=== PATIENT | female | born 1955 | race Caucasian/White ===

== ENCOUNTER 2016-12-29 23:39 | Inpatient (IN) | payer OTHER ==
--- NOTE | ~2016-12-29 | EGD ---
EGD REPORT [facility] [address] [address] NAME: CHINA SOUSA : 55 STATUS : ADM IN PAT#: [id number] AGE: 61 ADM/REG DATE : 12/30/16 MR#: [id number] REPORT SERV DATE: 12/31/16 DICTATED BY: MARLO THOAMS DATE: 12/31/16 REPORT STATUS : Draft TRANSCRIBED BY: [employer] DATE: 12/31/16 [facility] Patient Name: China Sousa Date of : 1955 Attending MD: MARLO THOMAS, Procedure Date No Time: 12/31/2016 Procedure: ERCP Indications: Jaundice Medicines: General Anesthesia Complications: No immediate complications. Estimated blood loss: None Procedure: After obtaining informed consent, the scope was passed under direct vision. Throughout the procedure, the patient's blood pressure, pulse, and oxygen saturations were monitored continuously. The TJF [id number] was introduced through the mouth, and advanced to the duodenum and used to inject contrast into the bile duct. The ERCP was accomplished without difficulty. The patient tolerated the procedure well. The ERCP was technically difficult and complex. Findings: The major papilla was normal. The major papilla was enlarged. The ventral pancreatic duct was deeply cannulated with the short-nosed traction sphincterotome. This was done after failing to canulate the bile duct. Contrast was injected. I personally interpreted the pancreatic duct images. Ductal flow of contrast was adequate. The ventral pancreatic duct in the head of the pancreas, pancreatic duct in the genu of the pancreas and pancreatic duct in the body of the pancreas were dilated diffusely. One 5 Fr by 5 cm temporary stent with a full external pigtail was placed into the ventral pancreatic duct. The stent was in good position. The bile duct was deeply cannulated with the short-nosed traction sphincterotome. Contrast was injected. Opacification of the in the biliary system was seen. The lower third of the main bile duct contained a single severe stenosis 15 mm in length. The middle third of the main bile duct and upper third of the main bile duct were severely dilated. Cells for cytology were obtained from the lower third of the main bile duct by brushing. Biliary sphincterotomy was made with a traction (standard) sphincterotome using ERBE electrocautery. There was no post-sphincterotomy bleeding. One 10 Fr by 7 cm temporary stent was placed into the common bile duct. Bile flowed through the stent. The stent was in good position. Impression: - The major papilla appeared normal. - The major papilla appeared to be enlarged. - Dilatation of the ventral pancreatic duct in the head EGD REPORT [place] [id number] [facility] [place]. [address] NAME: CHINA SOUSA : 55 STATUS : ADM IN [facility]#: [id number] AGE: 61 ADM/REG DATE : 12/30/16 MR#: [id number] REPORT SERV DATE: 12/31/16 DICTATED BY: MARLO THOMAS DATE: 12/31/16 REPORT STATUS : Draft TRANSCRIBED BY: [employer] DATE: 12/31/16 of the pancreas, pancreatic duct in the body of the pancreas and pancreatic duct in the genu of the pancreas was found diffusely. - A severe biliary stricture was found. - The upper third of the main bile duct and middle third of the main bile duct were severely dilated. Recommendation: - Return to previous diet. - Continue present medications. - Await cytology results. - Will need PD stent removed in 7-10 days. - Refer to a surgeon. Procedure Code(s): --- Professional --- 84641, Endoscopic retrograde cholangiopancreatography (ERCP); with placement of endoscopic stent into biliary or pancreatic duct, including pre- and post-dilation and guide wire passage, when performed, including sphincterotomy, when performed, each stent 45218, Endoscopic retrograde cholangiopancreatography (ERCP); with placement of endoscopic stent into biliary or pancreatic duct, including pre- and post-dilation and guide wire passage, when performed, including sphincterotomy, when performed, each stent Diagnosis Code(s): --- Professional --- K83.9, Disease of biliary tract, unspecified K86.8, Other specified diseases of pancreas K83.1, Obstruction of bile duct Q44.0, Agenesis, aplasia and hypoplasia of gallbladder Q44.1, Other congenital malformations of gallbladder Q44.4, Choledochal cyst Q44.5, Other congenital malformations of bile ducts Q44.7, Other congenital malformations of liver R17, Unspecified jaundice CPT copyright 2013 [employer]. All rights reserved. The codes documented in this report are preliminary and upon senior national account manager review may be revised to meet current compliance requirements. MARLO THOMAS, 12/31/2016 11:26 AM Number of Addenda: 0 EGD REPORT [facility] [address] [place] [address]. [id number] NAME: CHINA SOUSA : 55 STATUS : ADM IN [facility]#: [id number] AGE: 61 ADM/REG DATE : 12/30/16 MR#: [id number] REPORT SERV DATE: 12/31/16 DICTATED BY: MARLO THOMAS DATE: 12/31/16 REPORT STATUS : Draft TRANSCRIBED BY: [employer] DATE: 12/31/16 Note Initiated On: 12/31/2016 9:00 AM Scope Withdrawal Time 0 hours 0 minutes 0 seconds [facility] [place] [address]
--- NOTE | ~2016-12-29 | DS ---
Discharge Summary [facility] [address] [place]. [address] NAME: KOFI DECKER : 55 STATUS : DIS IN PAT#: [id number] AGE: 61 ADM/REG DATE : 12/30/16 MR#: [id number] REPORT SERV DATE: 01/02/17 DICTATED BY: BJ HENRY DATE: 01/01/17 REPORT STATUS : Draft TRANSCRIBED BY: MODL DATE: 01/01/17 ADMISSION DATE: 12/30/2016 DISCHARGE DATE: 01/01/2017 DISCHARGE DIAGNOSES: 1. Pancreatic mass with elevated CA-19-9 consistent with most likely pancreatic cancer. 2. Obstructive jaundice. 3. Tobacco abuse. 4. Anxiety disorder. CONSULTANTS DURING THIS HOSPITALIZATION: 1. Winter Collins MD of Gastroenterology. 2. Davis Nolasco MD of Interventional Gastroenterology. 3. Chencho Clemente M.D. of General Surgery. INVASIVE PROCEDURES DONE DURING THIS HOSPITALIZATION: ERCP with EUS showing gastritis, normal esophagus, normal duodenum, a 30 mm x 24 mm cystic lesion in the pancreatic head. Stricture in the lower third of the main bile duct, dilation of the common bile duct, dilated echo sonographic appearance of the pancreatic head, dilated pancreatic duct with placement of a pancreatic stent and a common bile duct stent. BRIEF HISTORY OF PRESENT ILLNESS: The patient is a 61-year-old female presented with weakness and weight loss with elevated liver function studies. So she was admitted. For detailed history and physical exam, please see note dictated by Dr. Liban Perez on 12/30/2016. HOSPITAL COURSE: After being admitted to the hospital, this patient underwent a CT of the abdomen and pelvis which showed cystic mass of the pancreas with dilation of the biliary tree. At that time, GI was consulted. Dr. Collins saw the patient in consultation, recommended an EUS ERCP. Dr. Nolasco saw the patient in consultation and performed the above procedure. Report of which is noted as above. Pathology reports are still pending. CA-19- 9 was done which was almost 2600+. We asked General Surgery to see the patient in consultation as well and Surgery recommended that she could be discharged and followed up in the outpatient setting. A CT of the chest was done for staging and it showed the patient has a history of carcinoma of the pancreas within the anterior mediastinum. There is a 3.2 x 2.1 cm inhomogeneous enhancing mass. The differential diagnosis includes metastases, malignant thymoma or lung carcinoma that has extended into the anterior mediastinum. No additional lung lesions or adenopathy are present, and she has COPD. This patient was ambulatory. She was tolerating diet, and she wants to go home and follow up in the outpatient setting. DISCHARGE DISPOSITION: Home. DISCHARGE ACTIVITY: As tolerated. DISCHARGE DIET: As tolerated. Discharge Summary [address] [address] NAME: KOFI DECKER : 55 STATUS : DIS IN PAT#: [id number] AGE: 61 ADM/REG DATE : 12/30/16 MR#: [id number] REPORT SERV DATE: 01/02/17 DICTATED BY: BJ HENRY DATE: 01/01/17 REPORT STATUS : Draft TRANSCRIBED BY: JEFF DATE: 01/01/17 DISCHARGE MEDICATIONS: Pepto-Bismol as needed and Prilosec 20 mg daily p.r.n. for heartburn. DISCHARGE FOLLOWUP: With Dr. Davis Nolasco as it will be scheduled through his office with Dr. Chencho Clemente in one week. More than 30 minutes spent planning this patient's discharge, reconciling medications, writing prescriptions, discussing hospital care, and followup with the patient and documenting this discharge. LEV/JEFF Bj Henry M.D. / [id number] CC: Jordyn Hensley MD Gregory Olds, MD Richard Hunter Jennings III, M.D.
--- NOTE | ~2016-12-29 | CN ---
Consultation Report [facility] [address] [place]. [address] NAME: KOFI SOUSA : 55 STATUS : ADM IN PAT#: [id number] AGE: 61 ADM/REG DATE : 12/30/16 MR#: [id number] REPORT SERV DATE: 12/31/16 DICTATED BY: CANDELARIA COLLINS DATE: 12/31/16 REPORT STATUS : Draft TRANSCRIBED BY: MODFauzia DATE: 12/31/16 DATE OF CONSULTATION: 12/30/2016 GI Consultation Note REASON FOR CONSULTATION: Abdominal pain, weight loss, nausea, weakness, abnormal CT scan, possible pancreatic mass. HISTORY OF PRESENT ILLNESS: Ms. Sousa is a 61-year-old female who presented to [facility] with a chief complaint of abdominal pain for the past 4 months which has radiated to her back, some nausea and occasional emesis, weakness and weight loss of 10 to 15 pounds within the past 4 months. She had an upper respiratory tract infection in July of 2016 and since then, she reports that her symptoms have gotten worse. She also has anorexia and poor appetite, subjective fever, chills, and sweats. On admission to [facility], her white count is normal. H and H are normal, but she has been noted to have a significant elevation in her liver enzymes and lipase. Her lipase is 2533, bilirubin was 2.7, AST 59, ALT 63, and alkaline phosphatase 1061. Repeat liver enzymes this morning showed a bilirubin of 2.5. High transaminasemia with an AST of 275, ALT of 518, and alk phos of 944. CT scan showed a cystic mass located in the pancreatic head which is described as a large multisegmented cystic structure, measuring to be about 4.7 x 3.8 cm. There is subsequent mass-effect on the pancreatic duct and distal common bile duct with extra and intrahepatic biliary dilatation as well. CA 19-9 also noted to be elevated at 2688. PAST MEDICAL HISTORY: Reflux disease, depression. PAST SURGICAL HISTORY: Tubal ligation. SOCIAL HISTORY: The patient smokes half a pack per day. Denies any alcohol or drug use. FAMILY HISTORY: Melanoma, gastric cancer, coronary artery disease. MEDICATIONS: Reviewed. ALLERGIES: REVIEWED. PHYSICAL EXAMINATION: GENERAL: Patient is a thin female, in no acute distress. Awake, alert, and oriented. HEENT: Atraumatic and normocephalic. Some mild scleral icterus. Mucous membranes moist. CARDIAC: S1 and S2. CHEST: Clear. ABDOMEN: Soft. Minimal tenderness to palpation without any rebound or guarding. Bowel sounds normoactive. Consultation Report [facility] [address] [place]. [address] NAME: KOFI SOUSA : 55 STATUS : ADM IN PAT#: [id number] AGE: 61 ADM/REG DATE : 12/30/16 MR#: [id number] REPORT SERV DATE: 12/31/16 DICTATED BY: CANDELARIA COLLINS DATE: 12/31/16 REPORT STATUS : Draft TRANSCRIBED BY: MODL DATE: 12/31/16 LABORATORY DATA: Show WBC 8.4, hemoglobin 13, hematocrit 37, platelets 377. Sodium 135, potassium 4.2, chloride 104, bicarb 7, BUN 0.48, glucose 118, albumin is 3, bilirubin 2.5, AST 275, ALT 518, alkaline phosphatase 944, lipase 2533. CA 19-[address] scan as dictated above. IMPRESSION AND PLAN: Pancreatic head mass of unclear etiology with subsequent biliary dilatation by mass effect. I will request Dr. Nolasco' services regarding endoscopic ultrasound for further evaluation of these findings. I have discussed the procedure, indications, risks, benefits, and alternatives and I have discussed the likely diagnosis regarding this pancreatic mass especially given her symptoms and her elevated CA 19-9. Questions and concerns were addressed. EMILY/JEFF Candelaria Collins MD / [id number] CC: MD ZACH Jones II, NP
--- NOTE | ~2016-12-29 | HP ---
History And Physical [facility] [address] [place]. [address] NAME: KOFI SOUSA : 55 STATUS : ADM IN [facility]#: [id number] AGE: 61 ADM/REG DATE : 12/30/16 MR#: [id number] REPORT SERV DATE: 12/30/16 DICTATED BY: KELSIE MONIQUE DATE: 12/30/16 REPORT STATUS : Draft TRANSCRIBED BY: MODL DATE: 12/30/16 DATE OF ADMISSION: 12/30/2016 POINT OF ENTRY: [facility] Emergency Department. CHIEF COMPLAINT: Abdominal pain, nausea, weakness, and weight loss. HISTORY OF PRESENT ILLNESS: Ms. Sousa is a 61-year-old female with no significant previous medical history, who presents to the emergency department today with a 4-month history of intermittent episodes of epigastric abdominal pain with radiation to the back with associated nausea, anorexia as well as weight loss. The patient states that she had an upper respiratory tract infection beginning in July and was coughing so hard that she subsequently developed some severe epigastric abdominal pain. She states that it occasionally will radiate to the back. Since this episode in July, she has had intermittent episodes of epigastric abdominal pain with radiation to the back. It occurs most days than not. It is associated with nausea, anorexia, occasional episodes of vomiting. Over the last 4 months, she states she has lost about 10 pounds. She has also had some chills and subjective fevers but never checked her temperature. She denies any yellowing of her skin or eyes. The patient also reports severe weakness and fatigue secondary to the weight loss and poor oral intake. Initial evaluation in the emergency department notable for a lipase level of 2533. She has evidence of obstructive jaundice with a bilirubin of 2.7, ALT is 63, AST 59, alkaline phosphatase of 1061. CT of the abdomen and pelvis unfortunately showed a cystic pancreatic mass in the head of the pancreas of 4.7 x 3.8 cm that is causing obstruction of the distal common bile duct as well as pancreatic duct. There is also extensive intra and extrahepatic ductal dilatation. The patient was subsequently admitted to the Hospitalist Service for further evaluation and management. REVIEW OF SYSTEMS: Comprehensive review of systems otherwise negative, unless listed in history of present illness. PREVIOUS MEDICAL HISTORY: 1. Gastric reflux disease. 2. Depression. 3. Active tobacco abuse. SURGICAL HISTORY: Tubal ligation. HOME MEDICATIONS: Pending at time of dictation. ALLERGIES: CODEINE. SOCIAL HISTORY: She does smoke about a half pack per day. States she quit this morning. History And Physical [address] [place]. [address] NAME: KOFI SOUSA : 55 STATUS : ADM IN [facility]#: [id number] AGE: 61 ADM/REG DATE : 12/30/16 MR#: [id number] REPORT SERV DATE: 12/30/16 DICTATED BY: KELSIE MONIQUE DATE: 12/30/16 REPORT STATUS : Draft TRANSCRIBED BY: JEFF DATE: 12/30/16 Denies alcohol. Denies illicits. FAMILY MEDICAL HISTORY: Mother of melanoma. Father with stomach cancer and coronary disease. Siblings with history of stomach cancer and coronary disease. LABS AND IMAGIN. White count is 9.5, hemoglobin is 14.2, hematocrit is 40.3, and platelet count is 420. 2. Sodium is 130, potassium 4.4, chloride 94, carbon dioxide is 34, BUN is 9, creatinine 0.63, glucose is 139, calcium is 10.1, protein is 8.1, albumin is 3.8, bilirubin is 2.7, ALT is 63, AST 359, alkaline phosphatase is 1061, her lipase is 2533. 3. Chest x-ray per my review shows no acute cardiopulmonary abnormality. Does show some COPD type changes with hyperinflation and flattened diaphragms. 4. CT scan of the abdomen and pelvis shows multi-cystic mass in the head of the pancreas measuring 4.7 x 3.8 cm obstruction of both the distal common bile duct as well as pancreatic duct resulting in intra and extrahepatic ductal dilatation with associated mildly distended gallbladder also present. PHYSICAL EXAMINATION: VITAL SIGNS: Temperature is 98.1 degrees Fahrenheit, pulse is 60, respirations 20, saturating 97% on room air, blood pressure 141/63. GENERAL: The patient is awake, alert, in no acute distress. Resting comfortably. She is a very frail and cachectic appearing female. HEENT: Atraumatic and normocephalic. Moist mucous membranes. Pupils are equal, round, reactive to light and accommodation. Extraocular eye movements intact. No scleral icterus. NECK: No jugular venous distention. No carotid bruits. CARDIAC: Regular rate and rhythm. No murmurs or gallops. Normal S1, S2. LUNGS: Clear auscultation bilaterally. Decreased breath sounds in the bases and prolonged expiratory phase. Otherwise, no wheezes, rhonchi, or crackles. ABDOMEN: Soft. Does have some epigastric tenderness to palpation, but no rebound, guarding, rigidity. EXTREMITIES: Warm, perfused. No cyanosis, clubbing, or edema. Is frail and cachectic. SKIN: Warm and dry. PSYCH: Affect appropriate. NEURO: Alert and oriented x3. Cranial nerves 2 through 12 grossly intact. Speech is normal. Gait not assessed. ASSESSMENT: Ms. Sousa is a 61-year-old female who presents with a 4-month history of abdominal pain, anorexia, nausea, and weight loss and found to have evidence of pancreatic head mass. PROBLEM LIST: 1. Pancreatic head mass concerning for pancreatic cancer. 2. Obstructive jaundice with known obstruction of the distal common bile duct and pancreatic duct. 3. Hyponatremia. 4. Active tobacco abuse. 5. Weight loss. History And Physical [address] [address] NAME: KOFI SOUSA : 55 STATUS : ADM IN [facility]#: [id number] AGE: 61 ADM/REG DATE : 12/30/16 MR#: [id number] REPORT SERV DATE: 12/30/16 DICTATED BY: KELSIE MONIQUE DATE: 12/30/16 REPORT STATUS : Draft TRANSCRIBED BY: MODFauzia DATE: 12/30/16 6. Weakness and fatigue. PLAN: 1. Pancreatic head mass concerning for pancreatic cancer. We will consult Gastroenterology for assistance in managing this. The patient will need likely ERCP and EUS with biopsies for definitive diagnosis. It remains to be seen whether not she is a candidate for stenting of either pancreatic or distal common bile duct given its extrinsic compression and mass. We will check a CEA as well as a CA-19-9 level overnight. 2. Active tobacco abuse. Nicotine replacement protocol. 3. Obstructive jaundice. Likely secondary to known obstruction of the distal common bile duct and pancreatic duct. We will check viral hepatitis panels, but I suspect this is all due to her known mass. 4. DVT prophylaxis. Lovenox subcu. CODE STATUS: The patient wished to be full code. JCB/JEFF Kelsie Monique MD / [id number] CC: MD Poppy Jones II
--- NOTE | ~2016-12-29 | EGD ---
EGD REPORT [facility] [address] [place] [address] NAME: CHINA SOUSA : 55 STATUS : ADM IN PAT#: [id number] AGE: 61 ADM/REG DATE : 12/30/16 MR#: [id number] REPORT SERV DATE: 12/31/16 DICTATED BY: MARLO THOMAS DATE: 12/31/16 REPORT STATUS : Draft TRANSCRIBED BY: [employer] DATE: 12/31/16 [facility] Patient Name: China Sousa Date of : 1955 Attending MD: MARLO THOMAS, Procedure Date No Time: 12/31/2016 Procedure: Upper EUS Indications: Suspected cystic pancreatic neoplasm Referring MD: Poppy Graham Medicines: General Anesthesia Complications: No immediate complications. Estimated blood loss: None. Procedure: After obtaining informed consent, the endoscope was passed under direct vision. Throughout the procedure, the patient's blood pressure, pulse, and oxygen saturations were monitored continuously. The Endoscope was introduced through the mouth, and advanced to the second part of duodenum. The GIF [id number] [id number] was introduced through the mouth, and advanced to the second part of duodenum. Findings: Endoscopic Finding : The examined esophagus was endoscopically normal. Diffuse mild inflammation characterized by granularity was found in the gastric body. Biopsies were taken with a cold forceps for histology. Verification of patient identification for the specimen was done. Estimated blood loss was minimal. The exam of the stomach was otherwise normal. The cardia and gastric fundus were normal on retroflexion. The examined duodenum was endoscopically normal. Endosonographic Finding : An anechoic and multicystic lesion suggestive of a cyst was identified in the pancreatic head. It is not in obvious communication with the pancreatic duct. The lesion measured 30 mm by 24 mm in maximal cross-sectional diameter. This appeared to be obstructing the bile duct. There were many compartments thinly septated. The outer wall of the lesion was thin. There was no associated mass. Diagnostic needle aspiration for fluid was performed. Color Doppler imaging was utilized prior to needle puncture to confirm a lack of significant vascular structures within the needle path. One pass was made with the 22 gauge needle using a transduodenal approach. No stylet was used. The amount of fluid collected was 2 mL. The fluid was clear. Sample(s) were sent for cytology and CEA. There was no vascular invasion. There was a suggestion of a stricture in the lower third of the main bile duct. EGD REPORT [address] [place]. [address] NAME: CHINA SOUSA : 55 STATUS : ADM IN [facility]#: [id number] AGE: 61 ADM/REG DATE : 12/30/16 MR#: [id number] REPORT SERV DATE: 12/31/16 DICTATED BY: MARLO THOMAS DATE: 12/31/16 REPORT STATUS : Draft TRANSCRIBED BY: [employer] DATE: 12/31/16 There was dilation in the common bile duct which measured up to 20 mm. The pancreatic duct had a dilated endosonographic appearance in the pancreatic head. The pancreatic duct measured up to 6 mm in diameter. The pancreatic duct had a dilated endosonographic appearance and had a prominently branched endosonographic appearance in the genu of the pancreas, in the body of the pancreas and in the tail of the pancreas. Minimal hyperechoic material consistent with sludge was visualized endosonographically in the gallbladder. There was no sign of significant endosonographic abnormality in the examined duodenum. Endosonographic images of the stomach were unremarkable. There was no sign of significant endosonographic abnormality in the esophagus. No lymphadenopathy seen. Impression: - Normal esophagus. - Gastritis. Biopsied. - Normal examined duodenum. - A 30 mm by 24 mm cystic lesion was seen in the pancreatic head. - There was a suggestion of a stricture in the lower third of the main bile duct. - There was dilation in the common bile duct which measured up to 20 mm. - The pancreatic duct had a dilated endosonographic appearance in the pancreatic head. The pancreatic duct measured up to 6 mm in diameter. - The pancreatic duct had a dilated endosonographic appearance and had a prominently branched endosonographic appearance in the genu of the pancreas, in the body of the pancreas and in the tail of the pancreas. - Hyperechoic material consistent with sludge was visualized endosonographically in the gallbladder. - There was no sign of significant pathology in the examined duodenum. - Endosonographic images of the stomach were unremarkable. - There was no sign of significant pathology in the esophagus. Recommendation: - Return to previous diet. - Continue present medications. - Levaquin (levofloxacin) 500 mg PO daily for 2 days. - Await cytology results, await path results and await tumor markers. EGD REPORT [address] [address] NAME: CHINA SOUSA : 55 STATUS : ADM IN [facility]#: [id number] AGE: 61 ADM/REG DATE : 12/30/16 MR#: [id number] REPORT SERV DATE: 12/31/16 DICTATED BY: MARLO THOMAS DATE: 12/31/16 REPORT STATUS : Draft TRANSCRIBED BY: [employer] DATE: 12/31/16 Procedure Code(s): --- Professional --- 69551, Esophagogastroduodenoscopy, flexible, transoral; with transendoscopic ultrasound-guided intramural or transmural fine needle aspiration/biopsy(s) (includes endoscopic ultrasound examination of the esophagus, stomach, and either the duodenum or a surgically altered stomach where the jejunum is examined distal to the anastomosis) Diagnosis Code(s): --- Professional --- K29.70, Gastritis, unspecified, without bleeding K86.2, Cyst of pancreas R93.2, Abnormal findings on diagnostic imaging of liver and biliary tract K83.8, Other specified diseases of biliary tract R93.3, Abnormal findings on diagnostic imaging of other parts of digestive tract CPT copyright 2013 [employer]. All rights reserved. The codes documented in this report are preliminary and upon gas shovel operator review may be revised to meet current compliance requirements. MARLO THOMAS, 12/31/2016 11:11 AM Number of Addenda: 0 Note Initiated On: 12/31/2016 9:00 AM Scope Withdrawal Time 0 hours 0 minutes 0 seconds [address] [place] [address]
--- NOTE | ~2016-12-29 | CN ---
Consultation Report [facility] [address] [place]. [address] NAME: KOFI DECKER : 55 STATUS : ADM IN [facility]#: [id number] AGE: 61 ADM/REG DATE : 12/30/16 MR#: [id number] REPORT SERV DATE: 01/01/17 DICTATED BY: HEMANTH TAPIA III DATE: 01/01/17 REPORT STATUS : Draft TRANSCRIBED BY: MOD[employer] DATE: 01/01/17 DATE OF CONSULTATION: 01/01/2017 ATTENDING PHYSICIAN: Davis Nolasco MD REASON FOR CONSULTATION: 1. Pancreatic mass. 2. Recommendation regarding surgical management. HISTORY OF PRESENT ILLNESS: We have been asked to see this 61-year-old female today for the above reasons. The patient complains of a five-month history of intermittent episodes of abdominal pain. This pain was associated with 10- to 15-pound weight loss, intermittent episodes of nausea and food intolerance. She describes pain in the epigastric area, which is sometimes sharp and stabbing. The patient presented to the emergency room and on admission, CT scan of the abdomen and pelvis was performed, which showed a large cystic mass in the head of the pancreas. On admission, the patient stated the pain was worse. This was associated with nausea. The pain migrates to the back. A CT scan of the abdomen and pelvis was performed through the emergency room, which showed evidence for a pancreatic head cystic structure with obstruction of pancreatic duct and biliary duct, measuring some 3.6 cm in size. She was also noted to be jaundiced. Her CA 19-9 was elevated at 2600. PAST MEDICAL HISTORY: History of anxiety and gastroesophageal reflux disease. PAST SURGICAL HISTORY: Status post tubal ligation. SOCIAL HISTORY: The patient works at [employer] in the [employer]. She lives alone. She has a history of tobacco abuse. She has no history of alcohol use. ALLERGIES: CODEINE. MEDICATIONS: Prilosec, Aleve, Pepto-Bismol. FAMILY HISTORY: Positive for gastric cancer and melanoma. PHYSICAL EXAMINATION: GENERAL: This is a cachectic-appearing female, in no acute distress. She is alert and oriented x3. She appears jaundiced. VITAL SIGNS: Blood pressure 107/57, pulse 56, temperature 97.8. HEENT: Unremarkable. Otherwise, cranial nerves 2 through 12 were normal. LUNGS: Clear. CARDIAC: Normal. Consultation Report [facility] [address] [place]. [address] NAME: KOFI DECKER : 55 STATUS : ADM IN PAT#: [id number] AGE: 61 ADM/REG DATE : 12/30/16 MR#: [id number] REPORT SERV DATE: 01/01/17 DICTATED BY: HEMANTH TAPIA III DATE: 01/01/17 REPORT STATUS : Draft TRANSCRIBED BY: JEFF DATE: 01/01/17 ABDOMEN: Soft and nontender. LABORATORY DATA: The patient's total bilirubin is 4 and alkaline phosphatase is 995. Hematocrit 35. CT scan of the abdomen and pelvis as above. ERCP showed a distal bile duct stricture. A stent was placed. ASSESSMENT: 1. A 61-year-old female with cystic mass in the pancreas, associated with biliary and pancreatic duct obstruction, nausea, vomiting and profound weight loss. 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 2. Weight loss secondary to #1. PLAN: The patient has a pancreatic mass, which is most likely malignant. Biopsies are pending. Even if the biopsies are negative for malignancy, this is a mass which is highly suspicious for malignant process with biliary and pancreatic ductal obstruction. The patient will need a Whipple procedure. I have discussed this with the patient. The patient is stable at this time and she can go home, and I will see her back in the office in one to two weeks to discuss this with her further and make arrangements for surgery, which will be a pancreaticoduodenectomy. This plan has been explained to the patient. Her questions have been answered, and she understands and agrees to this as planned. GREGORY/JEFF Hemanth Tapia III, M.D. / [id number] CC: MD Gladys Jones II, Bethany Elaine
--- NOTE | ~2016-12-29 | CN ---
Consultation Report [address] [place]. [address] NAME: KOFI DECKER : 55 STATUS : ADM IN PAT#: [id number] AGE: 61 ADM/REG DATE : 12/30/16 MR#: [id number] REPORT SERV DATE: 12/31/16 DICTATED BY: AMILCAR POE DATE: 12/31/16 REPORT STATUS : Draft TRANSCRIBED BY: MODL DATE: 12/31/16 GI CONSULTATION DATE OF CONSULTATION: 12/31/2016 HISTORY OF PRESENT ILLNESS: The patient is a 61-year-old, white female, whom I am consulted for biliary obstruction. The patient gives a five-month history of mid epigastric pain, which occasionally radiates to the back. This persisted. Her appetite has been diminished, and she has lost over 10 pounds. She does have nausea with occasional episodes of vomiting. She denies any dysphagia. She has recently noticed increase in fatigue and a yellow tint. On admission, her lipase was 2533, bilirubin 2.7, ALT 63, AST 59, and alkaline phosphatase is 1061. CT of the abdomen showed a cystic mass, pancreatic mass, and head of the pancreas with obstruction of the distal common bile duct and intra and extrahepatic ductal dilatation. PAST MEDICAL HISTORY: 1. Gastroesophageal reflux disease. 2. Depression. 3. Status post tubal ligation. MEDICATIONS: Reviewed. ALLERGIES: CODEINE. SOCIAL HISTORY: The patient smokes half a pack to pack of cigarettes per day. She does not drink alcohol. PHYSICAL EXAMINATION: GENERAL: The patient is a chronically ill-appearing, white female. She has mild icterus. LUNGS: Show few scattered rhonchi. CARDIOVASCULAR: Regular rate and rhythm. ABDOMEN: Soft. There is moderate tenderness in the mid epigastric region. Appears to be some mild fullness just to the right of midline in the upper abdomen. LABORATORY DATA: As above. ASSESSMENT: 1. The patient with a pancreatic mass, likely represents adenocarcinoma with biliary duct obstruction. 2. Chronic obstructive pulmonary disease. 3. Status post tubal ligation. RECOMMENDATION: We will schedule the patient for EUS with ERCP and likely stent placement today. Procedure and risks were discussed with the patient. Consultation Report [address] [address] NAME: KOFI DECKER : 55 STATUS : ADM IN PAT#: [id number] AGE: 61 ADM/REG DATE : 12/30/16 MR#: [id number] REPORT SERV DATE: 12/31/16 DICTATED BY: AMILCAR POE DATE: 12/31/16 REPORT STATUS : Draft TRANSCRIBED BY: JEFF DATE: 12/31/16 LS/JEFF ilcar Poe M.D. / [id number] CC: Jordyn Hensley BETHANY ELAINE
[2016-12-30 00:05] LABS: BASOPHILS 0.4 %; BASOPHILS ABSOLUTE 0.04 10/3/uL (0.0-0.16); EOSINOPHILS 2.4 %; EOSINOPHILS ABSOLUTE 0.23 10/3/uL (0.0-0.53); HEMATOCRIT 40.3 % (36.0-48.0); HEMOGLOBIN 14.2 g/dL (12.0-16.0); IMMATURE GRANULOCYTES 0.2 %; IMMATURE GRANULOCYTES ABSOLUTE 0.02 10/3/uL (0.0-0.11); LYMPHOCYTES 21.4 %; LYMPHOCYTES ABSOLUTE 2.02 10/3/uL (0.67-4.30); MEAN CORPUS HGB CONC 35.2 g/dL (32.0-36.0); MEAN CORPUSCULAR HEMOGLOB 30.3 pg (26.0-34.0); MEAN CORPUSCULAR VOLUME 85.9 fL (80-100); MEAN PLATELET VOLUME 9.1 fL (9.2-13.0); MONOCYTES 10.4 %; MONOCYTES ABSOLUTE 0.98 10/3/uL (0.21-1.20); NEUTROPHILS 65.2 %; NEUTROPHILS ABSOLUTE 6.17 10/3/uL (2.02-8.40); PLATELET COUNT 420 10/3/uL (150-400); RBC DISTRIBUTION WIDTH 13.8 % (12.0-16.0); RED CELL COUNT 4.69 10/6/uL (4.0-5.6); WHITE BLOOD CELLS 9.5 10/3/uL (4.5-10.5)
[2016-12-30 00:08] LABS: MANUAL DIFF NO %
[2016-12-30 00:34] LABS: A/G RATIO 0.9 (0.7-1.9); ALBUMIN 3.8 G/DL (3.5-5.0); ALKALINE PHOSPHATASE 1061 U/L (45-117); BUN (BLOOD UREA NITROGEN) 9 MG/DL (6-23); CALCIUM, SERUM 10.1 MG/DL (8.5-10.4); CHLORIDE, SERUM 94 MMOL/L (96-112); CO2 (CARBON DIOXIDE) 34 MMOL/L (24-34); CREATININE 0.63 MG/DL (0.55-1.02); GFR AFRICAN AMERICAN 112 ML/MIN (>=60); GFR NON AFRICAN AMERICAN 97 ML/MIN (>=60); GLOBULIN 4.3 G/DL (2.5-4.1); GLUCOSE, SERUM 139 MG/DL (60-99); POTASSIUM, SERUM 4.4 MMOL/L (3.5-5.3); SGOT(AST) 359 U/L (5-40); SGPT(ALT) 663 U/L (5-65); SODIUM, SERUM 130 MMOL/L (135-148); TOTAL BILIRUBIN 2.7 MG/DL (0-1.2); TOTAL PROTEIN 8.1 G/DL (6.0-8.5)
[2016-12-30 01:49] LABS: ASCORBIC ACID (UR NOT ORDER) NEG (NEG); BILIRUBIN, URINE NEGATIVE (NEG); ER URINALYSIS TAT 0 Hrs 08 Mins; KETONE, URINE NEGATIVE (NEG); LEUKOCYTE ESTERASE(NOT OR NEG (NEG); NITRITE (URINE) NEG (NEG); WBC (NOT ORDERED) (RFLEX) 1 (0-5)
[2016-12-30] MEDS ORDERED: ALEVE220 MG PO (03:46)
[2016-12-30] MEDS ORDERED: PRILOSEC OTC20 MG PO (03:46)
[2016-12-30] MEDS ORDERED: PEPTO-BISMOL TA1 TAB PO (03:47)
[2016-12-30 07:22] LABS: BASOPHILS 0.5 %; BASOPHILS ABSOLUTE 0.04 10/3/uL (0.0-0.16); EOSINOPHILS 2.8 %; EOSINOPHILS ABSOLUTE 0.23 10/3/uL (0.0-0.53); HEMATOCRIT 37.2 % (36.0-48.0); IMMATURE GRANULOCYTES 0.2 %; IMMATURE GRANULOCYTES ABSOLUTE 0.02 10/3/uL (0.0-0.11); LYMPHOCYTES 21.3 %; LYMPHOCYTES ABSOLUTE 1.78 10/3/uL (0.67-4.30); MEAN CORPUS HGB CONC 34.9 g/dL (32.0-36.0); MEAN CORPUSCULAR HEMOGLOB 30.2 pg (26.0-34.0); MEAN CORPUSCULAR VOLUME 86.3 fL (80-100); MEAN PLATELET VOLUME 8.9 fL (9.2-13.0); MONOCYTES 8.7 %; MONOCYTES ABSOLUTE 0.73 10/3/uL (0.21-1.20); NEUTROPHILS 66.5 %; NEUTROPHILS ABSOLUTE 5.55 10/3/uL (2.02-8.40); PLATELET COUNT 377 10/3/uL (150-400); RBC DISTRIBUTION WIDTH 13.8 % (12.0-16.0); RED CELL COUNT 4.31 10/6/uL (4.0-5.6); WHITE BLOOD CELLS 8.4 10/3/uL (4.5-10.5)
[2016-12-30 07:24] LABS: MANUAL DIFF NO %
[2016-12-30 07:52] LABS: A/G RATIO 0.9 (0.7-1.9); ALKALINE PHOSPHATASE 944 U/L (45-117); BUN (BLOOD UREA NITROGEN) 7 MG/DL (6-23); CA-19-9 2688.2 U/ML (< 37.0); CEA 1.8 NG/ML; CHLORIDE, SERUM 104 MMOL/L (96-112); CO2 (CARBON DIOXIDE) 26 MMOL/L (24-34); CREATININE 0.48 MG/DL (0.55-1.02); GFR AFRICAN AMERICAN 123 ML/MIN (>=60); GFR NON AFRICAN AMERICAN 106 ML/MIN (>=60); GLOBULIN 3.5 G/DL (2.5-4.1); GLUCOSE, SERUM 118 MG/DL (60-99); POTASSIUM, SERUM 4.2 MMOL/L (3.5-5.3); SGOT(AST) 275 U/L (5-40); SGPT(ALT) 518 U/L (5-65); SODIUM, SERUM 135 MMOL/L (135-148); TOTAL BILIRUBIN 2.5 MG/DL (0-1.2); TOTAL PROTEIN 6.5 G/DL (6.0-8.5)
[2016-12-31 06:13] LABS: BASOPHILS 0.4 %; BASOPHILS ABSOLUTE 0.03 10/3/uL (0.0-0.16); EOSINOPHILS 2.2 %; EOSINOPHILS ABSOLUTE 0.16 10/3/uL (0.0-0.53); HEMATOCRIT 35.3 % (36.0-48.0); HEMOGLOBIN 11.9 g/dL (12.0-16.0); IMMATURE GRANULOCYTES 0.3 %; IMMATURE GRANULOCYTES ABSOLUTE 0.02 10/3/uL (0.0-0.11); LYMPHOCYTES ABSOLUTE 1.65 10/3/uL (0.67-4.30); MEAN CORPUS HGB CONC 33.7 g/dL (32.0-36.0); MEAN CORPUSCULAR HEMOGLOB 29.4 pg (26.0-34.0); MEAN CORPUSCULAR VOLUME 87.2 fL (80-100); MEAN PLATELET VOLUME 9.4 fL (9.2-13.0); MONOCYTES ABSOLUTE 0.72 10/3/uL (0.21-1.20); NEUTROPHILS 64.1 %; NEUTROPHILS ABSOLUTE 4.59 10/3/uL (2.02-8.40); PLATELET COUNT 362 10/3/uL (150-400); RBC DISTRIBUTION WIDTH 14.2 % (12.0-16.0); RED CELL COUNT 4.05 10/6/uL (4.0-5.6); WHITE BLOOD CELLS 7.2 10/3/uL (4.5-10.5)
[2016-12-31 06:18] LABS: MANUAL DIFF NO %
[2016-12-31 06:21] LABS: PROTIME (NOT ORD) 13.2 SEC (12.0-14.5)
[2016-12-31 06:36] LABS: A/G RATIO 0.8 (0.7-1.9); ALBUMIN 2.6 G/DL (3.5-5.0); BUN (BLOOD UREA NITROGEN) 8 MG/DL (6-23); CALCIUM, SERUM 8.8 MG/DL (8.5-10.4); CHLORIDE, SERUM 105 MMOL/L (96-112); CO2 (CARBON DIOXIDE) 26 MMOL/L (24-34); CREATININE 0.45 MG/DL (0.55-1.02); GFR AFRICAN AMERICAN 125 ML/MIN (>=60); GFR NON AFRICAN AMERICAN 108 ML/MIN (>=60); GLOBULIN 3.1 G/DL (2.5-4.1); GLUCOSE, SERUM 106 MG/DL (60-99); POTASSIUM, SERUM 4.1 MMOL/L (3.5-5.3); SGOT(AST) 294 U/L (5-40); SGPT(ALT) 446 U/L (5-65); SODIUM, SERUM 139 MMOL/L (135-148); TOTAL PROTEIN 5.7 G/DL (6.0-8.5)
[2016-12-31 06:37] LABS: ALKALINE PHOSPHATASE 995 U/L (45-117)
[2016-12-31 13:26] LABS: BD FL SOURCE (NOT ORD) PANCREATIC CYST
[2017-01-01 06:00] LABS: A/G RATIO 0.8 (0.7-1.9); ALBUMIN 2.6 G/DL (3.5-5.0); CALCIUM, SERUM 8.9 MG/DL (8.5-10.4); CHLORIDE, SERUM 102 MMOL/L (96-112); CO2 (CARBON DIOXIDE) 30 MMOL/L (24-34); CREATININE 0.62 MG/DL (0.55-1.02); DIRECT BILIRUBIN 0.5 MG/DL (0.0-0.4); GFR AFRICAN AMERICAN 113 ML/MIN (>=60); GFR NON AFRICAN AMERICAN 97 ML/MIN (>=60); GLOBULIN 3.1 G/DL (2.5-4.1); GLUCOSE, SERUM 127 MG/DL (60-99); POTASSIUM, SERUM 4.3 MMOL/L (3.5-5.3); SGOT(AST) 100 U/L (5-40); SGPT(ALT) 349 U/L (5-65); SODIUM, SERUM 140 MMOL/L (135-148); TOTAL PROTEIN 5.7 G/DL (6.0-8.5)
[2017-01-01 06:03] LABS: ALKALINE PHOSPHATASE 835 U/L (45-117); BUN (BLOOD UREA NITROGEN) 13 MG/DL (6-23); INDIRECT BILIRUBIN(NOT ORDER) 0.4 MG/DL (0.1-0.9); TOTAL BILIRUBIN 0.9 MG/DL (0-1.2)
[2017-01-01 06:04] LABS: BASOPHILS 0.2 %; BASOPHILS ABSOLUTE 0.02 10/3/uL (0.0-0.16); EOSINOPHILS 0.9 %; EOSINOPHILS ABSOLUTE 0.09 10/3/uL (0.0-0.53); HEMATOCRIT 33.5 % (36.0-48.0); HEMOGLOBIN 11.4 g/dL (12.0-16.0); IMMATURE GRANULOCYTES 0.3 %; IMMATURE GRANULOCYTES ABSOLUTE 0.03 10/3/uL (0.0-0.11); LYMPHOCYTES 25.7 %; LYMPHOCYTES ABSOLUTE 2.59 10/3/uL (0.67-4.30); MEAN CORPUSCULAR HEMOGLOB 29.7 pg (26.0-34.0); MEAN CORPUSCULAR VOLUME 87.2 fL (80-100); MEAN PLATELET VOLUME 9.3 fL (9.2-13.0); MONOCYTES 12.8 %; MONOCYTES ABSOLUTE 1.29 10/3/uL (0.21-1.20); NEUTROPHILS 60.1 %; NEUTROPHILS ABSOLUTE 6.07 10/3/uL (2.02-8.40); PLATELET COUNT 365 10/3/uL (150-400); RBC DISTRIBUTION WIDTH 14.1 % (12.0-16.0); RED CELL COUNT 3.84 10/6/uL (4.0-5.6)
[2017-01-01 06:06] LABS: MANUAL DIFF NO %; WHITE BLOOD CELLS 10.1 10/3/uL (4.5-10.5)
[2017-01-08] MEDS ORDERED: KLONO5 PO (12:14)
[2017-01-13] MEDS ORDERED: VITAMIN B PO (16:45)
[2017-01-13] MEDS ORDERED: VITC500 PO (16:46)
[2017-01-13] MEDS ORDERED: PROBIOTIC PO (16:47)
[2017-03-28] MEDS ORDERED: MSIMMR15 PO (15:22)
[2017-03-28] MEDS ORDERED: PR25 PO (15:23)
[2017-03-28] MEDS ORDERED: DURA12 TOP (15:23)
[2017-03-28] MEDS ORDERED: MARI2.5 PO (15:24)
[2017-03-28] MEDS ORDERED: MOTRIN IB200 MG PO (15:25)
== END 2017-01-01 14:55 | disposition home or self-care (01) | DRG 435 ==
LOC: ER 23:39 → 4EA 12-30 03:03
PROVIDERS: Hospitalist; Internal Medicine; Internal Medicine Gastroenterology; Surgery
PROC: 0DJD8ZZ Inspection of Lower Intestinal Tract, Via Natural or Artificial Opening Endoscopic (ICD-10-PCS; 2016-12-31)
PROC: 0F798DZ Dilation of Common Bile Duct with Intraluminal Device, Via Natural or Artificial Opening Endoscopic (ICD-10-PCS; principal; 2016-12-31 09:48)
PROC: 0F7D8DZ Dilation of Pancreatic Duct with Intraluminal Device, Via Natural or Artificial Opening Endoscopic (ICD-10-PCS; 2016-12-31 09:48)
DX: C25.9 Malignant neoplasm of pancreas, unspecified (principal); K83.1 Obstruction of bile duct; E87.1 Hypo-osmolality and hyponatremia; F17.210 Nicotine dependence, cigarettes, uncomplicated; F41.9 Anxiety disorder, unspecified; J44.9 Chronic obstructive pulmonary disease, unspecified; K21.9 Gastro-esophageal reflux disease without esophagitis
CPT/HCPCS: 71010; 71260; 74177; 74330; 80053; 81001; 82248; 82378; 83690; 85025; 85610; 86301; 88112; 88173; 88305; 88342; 93005; 99284; A9270-GY; C1725; C1769; C2617; C2625; J1200; J1956; J2405; J2710; J3010; Q9967

== ENCOUNTER 2017-01-16 07:06 | Inpatient (IN) | payer OTHER ==
--- NOTE | ~2017-01-16 | OP ---
Record Of Operation [facility] [address] [place]. [address] NAME: KOFI DECKER : 55 STATUS : ADM IN PAT#: [id number] AGE: 61 ADM/REG DATE : 01/16/17 MR#: [id number] REPORT SERV DATE: 01/16/17 DICTATED BY: KELSIE MOULTON JR. DATE: 01/16/17 REPORT STATUS : Draft TRANSCRIBED BY: MODL DATE: 01/16/17 DATE OF PROCEDURE: 01/16/2017 PREOPERATIVE DIAGNOSES: Pancreatic tumor, likely cystadenocarcinoma, likely serous cystadenoma of the pancreas, anterior mediastinal mass of unknown etiology, chronic obstructive pulmonary disease, malnutrition, obstructive jaundice, gastroesophageal reflux disease, and anxiety disorder. POSTOPERATIVE DIAGNOSES: Pancreatic tumor, likely cystadenocarcinoma, likely serous cystadenoma of the pancreas, anterior mediastinal mass of unknown etiology, chronic obstructive pulmonary disease, malnutrition, obstructive jaundice, gastroesophageal reflux disease, probable thymoma, and anxiety disorder. Pathology pending. NAME OF OPERATION: Bronchoscopy, robotic-assisted right thoracoscopy with total thymectomy, and en bloc wedge excision of right middle lobe, intercostal nerve block. SURGEON: Kelsie Moulton M.D. RESIDENT SURGEON: Rufino Mckeon MD SLUMBER ROOM ATTENDANT: Lamonte Le. ANESTHESIA: General endotracheal. FINDINGS: The patient was noted to have a well-demarcated tumor in anterior mediastinal compatible with thymoma. It was not invading the pericardium. The portion the right middle lobe was adherent to the tumor, but appeared to be more of an inflammatory adherence. We did wedge this out and removed it en bloc with the tumor to ensure we had adequate margins. There is minimal thymic tissue remaining. The total thymectomy with the en bloc excision of the right middle lobe was performed. Frozen section confirmed this to likely be a thymoma. It does not appear to be related to the thymic tumor or pancreatic tumor. Final pathology is pending. DETAILS OF OPERATION: After adequate general anesthesia, the patient was intubated. Bronchoscopy was performed noting no endobronchial lesions. There was no contraindications to resection. Mucous secretions were evacuated. A left-sided double-lumen endotracheal tube was then placed. The patient was then positioned in the supine position, where the chest was prepped and draped in routine sterile fashion. A small incision was made overlying the lateral chest wall. The trocar was introduced under direct visualization. There were no adhesions. The chest was insufflated to 8 cm of pressure. Remaining trocars were also placed. This was done under direct visualization. The da Christian was docked. The instruments were placed under direct visualization. The lung was obviously adherent to the tumor. We made decision to wedge this out using multiple firings of the robotic stapler. Tissue reinforcements were utilized. Once, we were able to separate this portion of the lung tissue from the remainder of the lung, we were able to dissect the tumor out easily. We used electrocautery and blunt dissection. The phrenic nerves were preserved. The left Record Of Operation [facility] [address] [place]. [address] NAME: KOFI DECKER : 55 STATUS : ADM IN [facility]#: [id number] AGE: 61 ADM/REG DATE : 01/16/17 MR#: [id number] REPORT SERV DATE: 01/16/17 DICTATED BY: KELSIE MOULTON JR. DATE: 01/16/17 REPORT STATUS : Draft TRANSCRIBED BY: JEFF DATE: 01/16/17 pleural space was opened. All the anterior thymic tissue was removed. The mass had good margins. The hemostasis was obtained. The mass was placed in a specimen bag and withdrawn through the accessory port. The chest was explored noting adequate hemostasis. The CO2 was removed from the left pleural space as well as right pleural space. A 28-Urdu chest tube was placed. The lung was reinflated. The trocar sites were closed with running Vicryl sutures. The skin was closed with running monofilament suture. A Dermabond dressing was applied. The procedure was terminated this point. The patient tolerated the procedure well and taken back to recovery room in stable condition. DON/JEFF Kelsie Moulton Jr., M.D. / [id number] CC: Jordyn Gallego Jr., BETHANY ELAINE Richard Hunter Jennings III, M.D.
[~2017-01-16 07:06] MED LIST: ALEVE220 MG PO; KLONO5 PO; PEPTO-BISMOL TA1 TAB PO; PRILOSEC OTC20 MG PO; PROBIOTIC PO; VITAMIN B PO; VITC500 PO
[2017-01-16 07:45] LABS: BASOPHILS 0.3 %; BASOPHILS ABSOLUTE 0.03 10/3/uL (0.0-0.16); EOSINOPHILS 3.3 %; HEMOGLOBIN 13.3 g/dL (12.0-16.0); IMMATURE GRANULOCYTES 0.2 %; IMMATURE GRANULOCYTES ABSOLUTE 0.02 10/3/uL (0.0-0.11); LYMPHOCYTES 20.7 %; LYMPHOCYTES ABSOLUTE 1.87 10/3/uL (0.67-4.30); MEAN CORPUS HGB CONC 34.1 g/dL (32.0-36.0); MEAN CORPUSCULAR HEMOGLOB 30.2 pg (26.0-34.0); MEAN CORPUSCULAR VOLUME 88.4 fL (80-100); MEAN PLATELET VOLUME 9.4 fL (9.2-13.0); MONOCYTES 7.2 %; MONOCYTES ABSOLUTE 0.65 10/3/uL (0.21-1.20); NEUTROPHILS 68.3 %; NEUTROPHILS ABSOLUTE 6.17 10/3/uL (2.02-8.40); PLATELET COUNT 463 10/3/uL (150-400); RBC DISTRIBUTION WIDTH 13.5 % (12.0-16.0); RED CELL COUNT 4.41 10/6/uL (4.0-5.6)
[2017-01-16 07:47] LABS: MANUAL DIFF NO %
[2017-01-16 07:52] LABS: INTERNATIONAL NORMAL RATI 0.9 UNITS (-); PROTIME (NOT ORD) 12.3 SEC (12.0-14.5)
[2017-01-16 08:00] LABS: A/G RATIO 0.9 (0.7-1.9); ALBUMIN 3.4 G/DL (3.5-5.0); ALKALINE PHOSPHATASE 227 U/L (45-117); BUN (BLOOD UREA NITROGEN) 13 MG/DL (6-23); CALCIUM, SERUM 9.4 MG/DL (8.5-10.4); CHLORIDE, SERUM 101 MMOL/L (96-112); CO2 (CARBON DIOXIDE) 34 MMOL/L (24-34); CREATININE 0.69 MG/DL (0.55-1.02); GFR AFRICAN AMERICAN 109 ML/MIN (>=60); GFR NON AFRICAN AMERICAN 94 ML/MIN (>=60); GLOBULIN 3.6 G/DL (2.5-4.1); GLUCOSE, SERUM 117 MG/DL (60-99); POTASSIUM, SERUM 4.5 MMOL/L (3.5-5.3); SGOT(AST) 21 U/L (5-40); SGPT(ALT) 37 U/L (5-65); SODIUM, SERUM 138 MMOL/L (135-148); TOTAL BILIRUBIN 0.4 MG/DL (0-1.2)
[2017-01-16 08:06] LABS: ASCORBIC ACID (UR NOT ORDER) 40 (NEG); BILIRUBIN, URINE NEGATIVE (NEG); KETONE, URINE NEGATIVE (NEG); LEUKOCYTE ESTERASE(NOT OR NEG (NEG); WBC (NOT ORDERED) (RFLEX) 1 (0-5)
[2017-01-17 04:14] LABS: BASOPHILS 0.1 %; BASOPHILS ABSOLUTE 0.01 10/3/uL (0.0-0.16); EOSINOPHILS 0.1 %; EOSINOPHILS ABSOLUTE 0.01 10/3/uL (0.0-0.53); IMMATURE GRANULOCYTES 0.2 %; IMMATURE GRANULOCYTES ABSOLUTE 0.03 10/3/uL (0.0-0.11); LYMPHOCYTES 12.6 %; MEAN CORPUS HGB CONC 33.1 g/dL (32.0-36.0); MEAN CORPUSCULAR HEMOGLOB 29.6 pg (26.0-34.0); MEAN CORPUSCULAR VOLUME 89.3 fL (80-100); MEAN PLATELET VOLUME 9.3 fL (9.2-13.0); MONOCYTES 8.6 %; MONOCYTES ABSOLUTE 1.16 10/3/uL (0.21-1.20); NEUTROPHILS 78.4 %; NEUTROPHILS ABSOLUTE 10.53 10/3/uL (2.02-8.40); PLATELET COUNT 361 10/3/uL (150-400); RBC DISTRIBUTION WIDTH 13.7 % (12.0-16.0)
[2017-01-17 04:16] LABS: HEMATOCRIT 30.8 % (36.0-48.0); HEMOGLOBIN 10.2 g/dL (12.0-16.0); RED CELL COUNT 3.45 10/6/uL (4.0-5.6); WHITE BLOOD CELLS 13.4 10/3/uL (4.5-10.5)
[2017-01-17 04:18] LABS: MANUAL DIFF NO %
[2017-01-17 04:25] LABS: BUN (BLOOD UREA NITROGEN) 12 MG/DL (6-23); CALCIUM, SERUM 8.4 MG/DL (8.5-10.4); CHLORIDE, SERUM 102 MMOL/L (96-112); CO2 (CARBON DIOXIDE) 29 MMOL/L (24-34); CREATININE 0.76 MG/DL (0.55-1.02); GFR AFRICAN AMERICAN 98 ML/MIN (>=60); GFR NON AFRICAN AMERICAN 85 ML/MIN (>=60); GLUCOSE, SERUM 172 MG/DL (60-99); POTASSIUM, SERUM 4.3 MMOL/L (3.5-5.3); SODIUM, SERUM 139 MMOL/L (135-148)
[2017-01-17] MEDS ORDERED: ZOFRAN4 PO (08:59)
[2017-01-17] MEDS ORDERED: NUCYNTA50 MG PO (09:00)
[2017-03-28] MEDS ORDERED: MSIMMR15 PO (15:22)
[2017-03-28] MEDS ORDERED: DURA12 TOP (15:23)
[2017-03-28] MEDS ORDERED: PR25 PO (15:23)
[2017-03-28] MEDS ORDERED: MARI2.5 PO (15:24)
[2017-03-28] MEDS ORDERED: MOTRIN IB200 MG PO (15:25)
== END 2017-01-17 14:43 | disposition home or self-care (01) | DRG 803 ==
LOC: SDC/OF 07:06 → 5NO 15:49
PROVIDERS: Thoracic Surgery (Cardiothoracic Vascular Surgery)
PROC: 3E0T3BZ Introduction of Anesthetic Agent into Peripheral Nerves and Plexi, Percutaneous Approach (ICD-10-PCS; 2017-01-16)
PROC: 07BM4ZZ Excision of Thymus, Percutaneous Endoscopic Approach (ICD-10-PCS; principal; 2017-01-16 08:00)
PROC: 0BBD4ZZ Excision of Right Middle Lung Lobe, Percutaneous Endoscopic Approach (ICD-10-PCS; 2017-01-16 08:00)
DX: D15.0 Benign neoplasm of thymus (principal); C25.3 Malignant neoplasm of pancreatic duct; J44.9 Chronic obstructive pulmonary disease, unspecified; K21.9 Gastro-esophageal reflux disease without esophagitis; F41.9 Anxiety disorder, unspecified
CPT/HCPCS: 36415; 71020; 80048; 80053; 81001; 82962; 83036; 85025; 85610; 86850; 86900; 86901; 87641; 88307; 88331; 88341; 88342; 93005; 94640; A9270-GY; J0690; J1885; J2250; J2370; J2405; J2710; J2795; J3010; P9045

== ENCOUNTER 2017-01-18 23:50 | Observation (INO) | payer OTHER ==
--- NOTE | ~2017-01-18 | DS ---
Discharge Summary [facility] [address] [place]. [address] NAME: KOFI DECKER : 55 STATUS : DIS IN PAT#: [id number] AGE: 61 ADM/REG DATE : 01/19/17 MR#: [id number] REPORT SERV DATE: 01/20/17 DICTATED BY: BJ HENRY DATE: 01/20/17 REPORT STATUS : Draft TRANSCRIBED BY: MODL DATE: 01/20/17 ADMISSION DATE: 01/19/2017 DISCHARGE DATE: 01/20/2017 DISCHARGE DIAGNOSES: 1. Acute exacerbation of chronic obstructive pulmonary disease. 2. Nausea and vomiting, now resolved. 3. Hypoxic respiratory failure, now resolved. 4. Pancreatic cancer. 5. No evidence of pneumonia at this time. 6. Recent lung surgery with a thymectomy and a partial lung resection. CONSULTANTS DURING THIS HOSPITALIZATION: None. INVASIVE PROCEDURES DONE DURING THIS HOSPITALIZATION: None. BRIEF HISTORY OF PRESENT ILLNESS: The patient is a 61-year-old white female, recently had a partial lung resection and thymectomy, presented with cough, wheezing, shortness of breath, and hypoxia, so she was admitted. For detailed history and physical exam, please see note dictated by Dr. Wilbert Reynaga on 01/19/2017. HOSPITAL COURSE: After being admitted to the hospital, this patient initially was thought to have hospital-acquired infection. She was given broad-spectrum antibiotics nebulizing, treatments, and oral steroids. When I saw the patient, this patient was feeling relatively well. I intensified her nebulizing treatments, and within 24 hours, this patient made a great turn around where all her wheezing had abated. She is off the oxygen. We have discontinued her antibiotics as there was no evidence of infection, and we have placed her on oral prednisone as well as an inhaler. This patient reports to me today that she does not want to have her Whipple done that she was supposed to see Dr. Clemente in the outpatient setting. I had a discussion with the patient to go see Dr. Clemente in the office for further discussion regarding her pancreatic cancer. DISCHARGE DISPOSITION: Home. DISCHARGE ACTIVITY: As tolerated. DISCHARGE DIET: As tolerated. DISCHARGE MEDICATIONS: Symbicort 160/4.5 two puffs twice daily, prednisone 10 mg once daily, Zofran 4 mg every eight hours p.r.n., Klonopin 0.25 mg p.o. daily p.r.n., vitamin B one tablet daily, vitamin C one tablet daily, probiotics, and hydrocodone 5/325 one tablet every four hours p.r.n. DISCHARGE FOLLOWUP: Will be with Dr. Clemente as to be scheduled by the patient or previously scheduled. Discharge Summary [address] [place]. [address] NAME: KOFI DECKER : 55 STATUS : DIS IN PAT#: [id number] AGE: 61 ADM/REG DATE : 01/19/17 MR#: [id number] REPORT SERV DATE: 01/20/17 DICTATED BY: BJ HENRY DATE: 01/20/17 REPORT STATUS : Draft TRANSCRIBED BY: JEFF DATE: 01/20/17 About 30 minutes spent planning this patient's discharge, reconciling medications, writing prescriptions, discussing hospital care, and followup with the patient. DICTATED BY: Jordyn Hensley/JEFF Bj Henry M.D. / [id number] CC: Bj Henry M.D. UNKNOWN Chencho Clemente III, M.D.
--- NOTE | ~2017-01-18 | HP ---
History And Physical [place] [id number] [facility] [place] [address] NAME: KOFI DECKER : 55 STATUS : ADM IN [facility]#: [id number] AGE: 61 ADM/REG DATE : 01/19/17 MR#: [id number] REPORT SERV DATE: 01/19/17 DICTATED BY: KRISTINE HENRIQUEZ DATE: 01/19/17 REPORT STATUS : Draft TRANSCRIBED BY: MODL DATE: 01/19/17 DATE OF ADMISSION: 01/19/2017 CHIEF COMPLAINT: A 61-year-old female with outpatient followup of pancreatic mass and biliary stent, as well as a recent surgery for thymus mass and mediastinal mass, now presenting with increasing shortness of breath, nausea, and vomiting. HISTORY OF PRESENTING ILLNESS: The patient's history was obtained through careful interview with the patient and sister coupled with review of [facility] medical records. The patient, earlier this year, has been diagnosed with a pancreatic mass with elevated CA19 9. Because of biliary obstruction, she had a stent placed under the care of Dr. Nolasco and is being evaluated for possible Whipple by Dr. Clemente. Also, the patient was found to have a mediastinal mass and was just evaluated surgically by Dr. Moulton on 01/16/2017 with removal of a thymus gland that seemed enlarged, but also a right middle lung wedge resection. When I reviewed [facility] medical records, the pathology was not back yet on this surgery. The patient had the surgery on 01/16/2017, but was able to be discharged home on 01/17/2017, and actually felt really good for about 24 hours at home. But then on 01/18/2017 in the evening, she began to feel ill again. She developed nausea, vomiting, constipation, fevers, chills, and temperature up to 100.0. She describes a cough productive of yellow sputum with increasing shortness of breath characterized by dyspnea on exertion. She has also had abdominal bloating, but no pain. No chest discomfort, but she has had a headache exacerbated by coughing, an aching diffuse discomfort, 3/10 severity only though. REVIEW OF SYSTEMS: Otherwise, a 14-point review of systems was obtained and was negative. PAST MEDICAL HISTORY: 1. Pancreatic mass with elevated CA19-9 and biliary stent placement, followed by Dr. Nolasco, spindle carver, and Dr. Clemente, surgeon. 2. COPD. 3. Mediastinal mass with thymectomy and right middle lung wedge resection, 01/16/2017, under the care Dr. Moulton. 4. Anxiety. 5. Diabetes. Hemoglobin A1c of 6.9, 12/2016. 6. H pylori, gastroesophageal reflux disorder. 7. No cardiac disease. PAST SURGICAL HISTORY: History And Physical [address] [address] NAME: KOFI DECKER : [birth year] STATUS : ADM IN [facility]#: [id number] AGE: 61 ADM/REG DATE : 01/19/17 MR#: [id number] REPORT SERV DATE: 01/19/17 DICTATED BY: KRISTINE HENRIQUEZ DATE: 01/19/17 REPORT STATUS : Draft TRANSCRIBED BY: JEFF DATE: 01/19/17 1. Thymectomy. 2. Right middle lung wedge resection. 3. Tubal ligation. ALLERGIES: CODEINE. SOCIAL HISTORY: Quit smoking two weeks ago. No alcohol abuse. Lives in [place], [place]. Is . Has no children. Works at [employer] in the kitchen. FAMILY HISTORY: Father and sibling with coronary artery disease. Mother with melanoma. Father and sibling with gastric cancer. CURRENT MEDICATIONS: Include vitamin C, multivitamin, Klonopin, hydrocodone, Zofran, and probiotics. PHYSICAL EXAMINATION: VITAL SIGNS: Temperature 98.7, pulse 72, blood pressure 120/61, respiratory rate 20, O2 saturation 87% on room air. GENERAL: An ill-appearing female in evidence of distress secondary to shortness of breath and cough. HEENT: Pupils equal, round, and reactive to light. No conjunctival pallor. No scleral icterus. Nares are patent. Oropharynx is clear of obstruction. Moist mucous membranes. NECK: Trachea midline. No thyromegaly. LYMPH: No cervical lymphadenopathy. No supraclavicular lymphadenopathy. RESPIRATORY: The patient has diminished breath sounds at the left base of lung. I do not appreciate any focal egophony. She has scattered rhonchi and also some scattered expiratory wheezes. No rales. No dullness to percussion to suggest effusion. The patient has a labored respiratory effort. CARDIOVASCULAR: Regular rate and rhythm. No murmurs, rubs, or gallops. No extremity edema is appreciated. ABDOMEN: Soft, minimally tender in the epigastric area, but no guarding and no rebound. Nondistended. No hepatosplenomegaly. DERMATOLOGICAL: Warm and dry extremities. No pallor. No cyanosis. PSYCHIATRIC: Normal affect. Good mood. Alert and oriented x3. LABORATORY DATA: Alkaline phosphatase 165, lipase 283. White blood cell count 9.2, hemoglobin 11, hematocrit 33, platelets 369. Sodium 139, potassium 4.0, chloride 100, bicarb 35, BUN 11, creatinine 0.62, glucose 127. Urinalysis, negative for infection. ABG demonstrates pH of 7.50, a PaCO2 of 37, a PaO2 of 55, and a bicarb of 28 on room air. STUDIES: 1. CT angiogram of the chest shows left pneumonia. 2. CT scan of the abdomen shows stable pancreatic mass with in-place biliary stents that are uncomplicated. There is pneumobilia that appears benign. 3. EKG by my own evaluation shows sinus rhythm, right axis deviation. ASSESSMENT AND PLAN: History And Physical [address] [address] NAME: KOFI DECKER : 55 STATUS : ADM IN [facility]#: [id number] AGE: 61 ADM/REG DATE : 01/19/17 MR#: [id number] REPORT SERV DATE: 01/19/17 DICTATED BY: KRISTINE HENRIQUEZ DATE: 01/19/17 REPORT STATUS : Draft TRANSCRIBED BY: JEFF DATE: 01/19/17 1. Hypoxic respiratory failure. Provide supportive care. 2. Facility-acquired pneumonia. Check blood cultures. Place on IV cefepime and IV vancomycin. 3. Chronic obstructive pulmonary disease. Place on p.o. prednisone, duo nebulizers. Quit smoking two weeks ago. 4. Pancreatic mass with biliary stent, followed by Dr. Nolasco, followed by Dr. Sha Clemente, surgeon, for possible Whipple with history of elevated CA19-9. 5. Recent lung surgery, 12/2016, with thymectomy and partial right middle lobe lung resection/wedge resection. KPL/MODL Kristine Henriquez M.D. / [id number] CC: MD Liban Elias Jr., M.D. Gregory Olds, MD
[~2017-01-18 23:50] MED LIST changes: +NUCYNTA50 MG PO; +ZOFRAN4 PO
[2017-01-19 00:06] LABS: ALLENS TEST Pos; BE (BASE EXCESS) 5.1 MEQ/L (0 +/- 2.5); HCO3 (ACTUAL BICARBONATE) 28.3 MEQ/L (23-27); INSTRUMENT SERIAL # 8087; OPERATOR ID 17589; PCO2 (CO2 TENSION) 37 MMHG (35-45); PO2 (O2 TENSION) 55 MMHG (79-93); SAMPLE Arterial
[2017-01-19 00:19] LABS: BASOPHILS 0.2 %; BASOPHILS ABSOLUTE 0.02 10/3/uL (0.0-0.16); EOSINOPHILS 1.6 %; EOSINOPHILS ABSOLUTE 0.15 10/3/uL (0.0-0.53); ER CBC TAT 0 Hrs 00 Mins; HEMATOCRIT 33.2 % (36.0-48.0); IMMATURE GRANULOCYTES 0.3 %; IMMATURE GRANULOCYTES ABSOLUTE 0.03 10/3/uL (0.0-0.11); LYMPHOCYTES ABSOLUTE 1.28 10/3/uL (0.67-4.30); MEAN CORPUS HGB CONC 33.1 g/dL (32.0-36.0); MEAN CORPUSCULAR HEMOGLOB 29.2 pg (26.0-34.0); MEAN CORPUSCULAR VOLUME 88.1 fL (80-100); MEAN PLATELET VOLUME 9.4 fL (9.2-13.0); MONOCYTES 11.6 %; MONOCYTES ABSOLUTE 1.06 10/3/uL (0.21-1.20); NEUTROPHILS 72.3 %; NEUTROPHILS ABSOLUTE 6.63 10/3/uL (2.02-8.40); PLATELET COUNT 369 10/3/uL (150-400); RBC DISTRIBUTION WIDTH 13.7 % (12.0-16.0); RED CELL COUNT 3.77 10/6/uL (4.0-5.6); WHITE BLOOD CELLS 9.2 10/3/uL (4.5-10.5)
[2017-01-19 00:20] LABS: MANUAL DIFF NO %
[2017-01-19 00:35] LABS: ALBUMIN 3.4 G/DL (3.5-5.0); BUN (BLOOD UREA NITROGEN) 11 MG/DL (6-23); CHLORIDE, SERUM 100 MMOL/L (96-112); CREATININE 0.62 MG/DL (0.55-1.02); GFR AFRICAN AMERICAN 113 ML/MIN (>=60); GFR NON AFRICAN AMERICAN 97 ML/MIN (>=60); GLOBULIN 3.3 G/DL (2.5-4.1); SGOT(AST) 23 U/L (5-40); SGPT(ALT) 32 U/L (5-65); SODIUM, SERUM 139 MMOL/L (135-148); TOTAL BILIRUBIN 0.5 MG/DL (0-1.2); TOTAL PROTEIN 6.7 G/DL (6.0-8.5)
[2017-01-19 00:36] LABS: ALKALINE PHOSPHATASE 165 U/L (45-117); CALCIUM, SERUM 9.5 MG/DL (8.5-10.4); CO2 (CARBON DIOXIDE) 35 MMOL/L (24-34); GLUCOSE, SERUM 127 MG/DL (60-99)
[2017-01-19 01:16] LABS: ASCORBIC ACID (UR NOT ORDER) NEG (NEG); BILIRUBIN, URINE NEGATIVE (NEG); ER URINALYSIS TAT 0 Hrs 09 Mins; KETONE, URINE NEGATIVE (NEG); LEUKOCYTE ESTERASE(NOT OR NEG (NEG); NITRITE (URINE) NEG (NEG); WBC (NOT ORDERED) (RFLEX) 6 (0-5)
[2017-01-19] MEDS ORDERED: NORCO1 TA1 PO (04:13)
[2017-01-19 11:18] LABS: BASOPHILS 0.1 %; BASOPHILS ABSOLUTE 0.01 10/3/uL (0.0-0.16); EOSINOPHILS 2.5 %; EOSINOPHILS ABSOLUTE 0.21 10/3/uL (0.0-0.53); HEMATOCRIT 30.1 % (36.0-48.0); IMMATURE GRANULOCYTES 0.1 %; IMMATURE GRANULOCYTES ABSOLUTE 0.01 10/3/uL (0.0-0.11); LYMPHOCYTES 15.4 %; LYMPHOCYTES ABSOLUTE 1.27 10/3/uL (0.67-4.30); MEAN CORPUS HGB CONC 33.2 g/dL (32.0-36.0); MEAN CORPUSCULAR HEMOGLOB 29.4 pg (26.0-34.0); MEAN CORPUSCULAR VOLUME 88.5 fL (80-100); MEAN PLATELET VOLUME 9.4 fL (9.2-13.0); MONOCYTES 9.2 %; MONOCYTES ABSOLUTE 0.76 10/3/uL (0.21-1.20); NEUTROPHILS 72.7 %; NEUTROPHILS ABSOLUTE 5.99 10/3/uL (2.02-8.40); PLATELET COUNT 340 10/3/uL (150-400); RBC DISTRIBUTION WIDTH 13.5 % (12.0-16.0); WHITE BLOOD CELLS 8.3 10/3/uL (4.5-10.5)
[2017-01-19 11:21] LABS: MANUAL DIFF NO %
[2017-01-19 11:25] LABS: INTERNATIONAL NORMAL RATI 1.1 UNITS (-); PARTIAL THROMBO TIME 29.4 SEC (22.5-37.2); PROTIME (NOT ORD) 14.4 SEC (12.0-14.5)
[2017-01-19 11:30] LABS: BUN (BLOOD UREA NITROGEN) 10 MG/DL (6-23); CALCIUM, SERUM 9.1 MG/DL (8.5-10.4); CHLORIDE, SERUM 106 MMOL/L (96-112); CREATININE 0.62 MG/DL (0.55-1.02); GFR AFRICAN AMERICAN 113 ML/MIN (>=60); GFR NON AFRICAN AMERICAN 97 ML/MIN (>=60); GLUCOSE, SERUM 122 MG/DL (60-99); POTASSIUM, SERUM 3.7 MMOL/L (3.5-5.3); SGOT(AST) 18 U/L (5-40); SGPT(ALT) 29 U/L (5-65); SODIUM, SERUM 138 MMOL/L (135-148); TOTAL BILIRUBIN 0.4 MG/DL (0-1.2); TOTAL PROTEIN 5.9 G/DL (6.0-8.5); TROPONIN I <0.02 NG/ML (<0.05)
[2017-01-19 11:31] LABS: A/G RATIO 0.8 (0.7-1.9); ALBUMIN 2.7 G/DL (3.5-5.0); ALKALINE PHOSPHATASE 147 U/L (45-117); CO2 (CARBON DIOXIDE) 29 MMOL/L (24-34); GLOBULIN 3.2 G/DL (2.5-4.1)
[2017-01-19 12:04] LABS: PROCALCITONIN <0.05 ng/mL (<0.5)
[2017-01-20 06:20] LABS: BASOPHILS 0.3 %; BASOPHILS ABSOLUTE 0.02 10/3/uL (0.0-0.16); EOSINOPHILS 1.6 %; EOSINOPHILS ABSOLUTE 0.12 10/3/uL (0.0-0.53); HEMATOCRIT 30.3 % (36.0-48.0); HEMOGLOBIN 10.3 g/dL (12.0-16.0); IMMATURE GRANULOCYTES 0.1 %; IMMATURE GRANULOCYTES ABSOLUTE 0.01 10/3/uL (0.0-0.11); LYMPHOCYTES 23.5 %; LYMPHOCYTES ABSOLUTE 1.72 10/3/uL (0.67-4.30); MANUAL DIFF NO %; MEAN CORPUSCULAR HEMOGLOB 29.9 pg (26.0-34.0); MEAN CORPUSCULAR VOLUME 88.1 fL (80-100); MEAN PLATELET VOLUME 9.5 fL (9.2-13.0); MONOCYTES 10.4 %; MONOCYTES ABSOLUTE 0.76 10/3/uL (0.21-1.20); NEUTROPHILS 64.1 %; NEUTROPHILS ABSOLUTE 4.68 10/3/uL (2.02-8.40); PLATELET COUNT 326 10/3/uL (150-400); RBC DISTRIBUTION WIDTH 13.3 % (12.0-16.0); RED CELL COUNT 3.44 10/6/uL (4.0-5.6); WHITE BLOOD CELLS 7.3 10/3/uL (4.5-10.5)
[2017-01-20 06:34] LABS: ALBUMIN 2.8 G/DL (3.5-5.0); CALCIUM, SERUM 8.8 MG/DL (8.5-10.4); CHLORIDE, SERUM 102 MMOL/L (96-112); CO2 (CARBON DIOXIDE) 32 MMOL/L (24-34); CREATININE 0.57 MG/DL (0.55-1.02); GFR AFRICAN AMERICAN 116 ML/MIN (>=60); GFR NON AFRICAN AMERICAN 100 ML/MIN (>=60); PHOSPHORUS, SERUM 3.4 MG/DL (2.5-4.5); POTASSIUM, SERUM 3.8 MMOL/L (3.5-5.3); SODIUM, SERUM 137 MMOL/L (135-148)
[2017-01-20 06:36] LABS: BUN (BLOOD UREA NITROGEN) 15 MG/DL (6-23); GLUCOSE, SERUM 148 MG/DL (60-99)
[2017-01-20] MEDS ORDERED: SYMBICORT 160/41 INH INH (09:50)
[2017-01-20] MEDS ORDERED: P10 PO (09:50)
[2017-03-28] MEDS ORDERED: MSIMMR15 PO (15:22)
[2017-03-28] MEDS ORDERED: DURA12 TOP (15:23)
[2017-03-28] MEDS ORDERED: PR25 PO (15:23)
[2017-03-28] MEDS ORDERED: MARI2.5 PO (15:24)
[2017-03-28] MEDS ORDERED: MOTRIN IB200 MG PO (15:25)
== END 2017-01-20 12:14 | disposition home or self-care (01) ==
LOC: ER 23:50 → 2SO 01-19 03:16
PROVIDERS: Hospitalist; Internal Medicine; Nurse Practitioner; Specialist
DX: J44.1 Chronic obstructive pulmonary disease with (acute) exacerbation (principal); J96.91 Respiratory failure, unspecified with hypoxia; C25.9 Malignant neoplasm of pancreas, unspecified; F41.9 Anxiety disorder, unspecified; E11.9 Type 2 diabetes mellitus without complications; K21.9 Gastro-esophageal reflux disease without esophagitis; Z98.51 Tubal ligation status; Z98.890 Other specified postprocedural states; Z88.5 Allergy status to narcotic agent; Z87.891 Personal history of nicotine dependence; Z82.49 Family history of ischemic heart disease and other diseases of the circulatory system; Z79.899 Other long term (current) drug therapy
CPT/HCPCS: 36600; 71010; 71020; 71275; 74176; 80053; 80069; 81001; 82150; 82805; 82962; 83690; 83735; 83880; 84145; 84484; 85025; 85610; 85730; 87040; 93005; 94640; 96365; 96366; 96372; 96374; 96375; 96376; 99285; A9270-GY; G0378; J0692; J2405; J3370; Q9967